=== PATIENT | female | born 1940 | race Caucasian/White ===

== ENCOUNTER 2022-06-05 18:24 | Emergency (ER) | payer MEDICAID, OTHER ==
[~2022-06-05] VITALS: Ht 154.9 cm; Wt 46.7 kg
[2022-06-05 18:24] VITALS: BP 138/64
--- NOTE | 2022-06-05 18:45 | NUR ---
Patient unable to assist from [facility] onto wheelchair d/t pain and current R hip fx.
--- NOTE | 2022-06-05 19:10 | NUR ---
Dr. Araujo evalutaing patient on [facility].
--- NOTE | 2022-06-05 19:11 | NUR ---
81/F BIBA FROM [facility] C/O BRIGHT RED BLOOD IN CINTRON CATHETER SINCE 1699. PT A&OX4, STATES CINTRON CATHETER PLACED IN LAST NIGHT; PT STATES WITH BLOOD-TINGED URINE APPROX. 200ML NOTED SINCE 1699. PT DENIES PAIN, DYSURIA, N/V/D, CONSTIPATION, CHEST PAIN, FEVER, CHILLS. PT W/ R HIP FX. DNR. PMH: HTN, HLD, NEUROPATHY, R HIP FX 3 WKS AGO MEDS: ASA, NORCO, PREGABALIN, LIPITOR, BENICAR NKDA
--- NOTE | 2022-06-05 19:21 | NUR ---
Report and transfer of care endorsed to CHRISTOPHER Mckeon.
--- NOTE | 2022-06-05 19:21 | NUR ---
Patient taken to bed 5.
--- NOTE | 2022-06-05 20:06 | NUR ---
PT IS FROM [facility] PRESENTS TO ED FOR BLOOD IN URINE / CINTRON CATH X1DAY. PT DENIES PAIN N/V/D. PT IS A&OX4. DENIES FEVER CHILIS OR DYSURIA. RIGHT HIP FX X3 WEEKS. HOB ELEVATED. BED AT LOWEST POSITION. URINE COLLECTED AND SENT TO LAB NKDA HTN NEUROPATHY
[2022-06-05 20:18] LABS: BILIRUBIN,URINE 1+ (NEGATIVE); BLOOD, URINE 3+ (NEGATIVE); COLOR,URINE YELLOW (YELLOW); LEUKOCYTE ESTERASE ,URINE 1+ (NEGATIVE); NITRITE, URINE POSITIVE (NEGATIVE); PH,URINE 6.5 (5.0-9.0); UGLUCOSE NEGATIVE (NEGATIVE)
--- NOTE | 2022-06-05 20:19 | NUR ---
URINE COLLECTED VIA CINTRON AND SENT TO LAB
[2022-06-05 20:22] LABS: APPEARANCE,URINE HAZY (CLEAR)
[2022-06-05 20:35] LABS: RBC,URINE TOO NUMEROUS TO COUN /HPF (0-5); WBC,URINE 0-5 /HPF (0-5)
--- NOTE | 2022-06-05 21:28 | NUR ---
Dr. Araujo examining patient.
[2022-06-05] MEDS ORDERED: CEPH-588 PO (21:29)
--- NOTE | 2022-06-05 22:50 | NUR ---
Patient appears to be resting comfortably in bed. Vital Signs within normal limits. Respirations even and unlabored.
--- NOTE | 2022-06-06 01:06 | NUR ---
Patient appears to be resting comfortably in bed. Vital Signs within normal limits. Respirations even and unlabored.
--- NOTE | 2022-06-06 02:50 | NUR ---
Patient appears to be resting comfortably in bed. Vital Signs within normal limits. Respirations even and unlabored.
--- NOTE | 2022-06-06 03:01 | NUR ---
PT MOVED TO ER BED 3
--- NOTE | 2022-06-06 03:50 | NUR ---
provided water as request.
--- NOTE | 2022-06-06 04:28 | NUR ---
Patient appears to be resting comfortably in bed. Vital Signs within normal limits. Respirations even and unlabored.
--- NOTE | 2022-06-06 05:18 | NUR ---
Re-position patient.
--- NOTE | 2022-06-06 05:34 | NUR ---
empty urine bag ~ 1200 ML, red color.
[2022-06-06] MEDS ORDERED: GABAPENTIN 300 MG CAP PO ONE (06:50)
--- NOTE | 2022-06-06 08:14 | NUR ---
PT REPOSITIONED TO FLAT
--- NOTE | 2022-06-06 08:54 | NUR ---
MOVED TO ER BED 8
--- NOTE | 2022-06-06 10:17 | NUR ---
PT REPOSITIONED TO LEFT SIDE LYING
--- NOTE | 2022-06-06 11:12 | NUR ---
PT REPOSITIONED TO R SIDE
--- NOTE | 2022-06-06 11:23 | NUR ---
[facility] CONTACTED AND MADE AWARE OF PT D/C AND ETA. SPOKE W/ WILIAM MENA.
[2022-06-06 11:31] VITALS: BP 132/63
--- NOTE | 2022-06-06 11:57 | NUR ---
Patient discharged with v/s stable. Written and verbal after care instructions FOR INDWELLING CATHETER, UTI AND HEMATURIA given and explained. Patient alert, oriented and verbalized understanding of instructions. Ambulance Transport with to [facility]. All questions addressed prior to discharge. ID band removed. Patient advised to follow up with PMD. Rx of KELFEX given. Opportunity to ask questions provided and answered. REPORT GIVEN TO WILIAM MENA AT [facility].
--- NOTE | 2022-06-06 12:01 | NUR ---
PT TX VIA [facility]
--- NOTE | 2022-06-06 12:09 | NUR ---
The patient's care was reviewed and supervised by ED Agency Nurse 7, RN, RN.
== END 2022-06-06 11:57 | disposition home or self-care (01) ==
LOC: MED 18:24
DX: R31.9 Hematuria, unspecified (principal); N39.0 Urinary tract infection, site not specified; I10 Essential (primary) hypertension; E78.5 Hyperlipidemia, unspecified; Z79.899 Other long term (current) drug therapy; Z98.890 Other specified postprocedural states
CPT/HCPCS: 81001; 87086; 99285

== ENCOUNTER 2022-11-29 15:15 | Emergency (ER) | payer OTHER, MEDICAID ==
[~2022-11-29] VITALS: Ht 160 cm; Wt 53.1 kg
[~2022-11-29 15:15] MED LIST: CEPH-588 PO
[2022-11-29 15:19] VITALS: BP 94/48
[2022-11-29 16:09] LABS: WHITE BLOOD COUNT (AUTO) 9.4 K/uL (4.8-10.8)
[2022-11-29 16:11] LABS: BASOPHILS % (AUTO) 0.3 % (0.0-2.0); EOSINOPHILS % (AUTO) 1.6 % (0.0-4.0); HEMATOCRIT 27.7 % (36-48); HEMOGLOBIN 9.2 g/dL (12.0-16.0); LYMPHOCYTES % (AUTO) 27.3 % (20.5-51.1); MEAN CORPUSCULAR HEMOGLOBIN 28 pg (27-31); MEAN CORPUSCULAR HGB CONC 33 g/dL (33-37); MEAN CORPUSCULAR VOLUME 85.3 fL (80-94); MONOCYTES % (AUTO) 8.6 % (1.7-9.3); NEUTROPHILS % (AUTO) 62.2 % (42.2-75.2); PLATELET COUNT (AUTO) 194 K/uL (140-450); RED BLOOD CELL COUNT(AUTO) 3.25 MIL/uL (4.20-5.40); RED CELL DISTRIBUTION WIDTH 16.9 % (11.6-13.7)
[2022-11-29 16:12] LABS: EOSINOPHILS # (AUTO) 0.1 K/uL (0-0.4); LYMPHOCYTES # (AUTO) 2.6 K/uL (2.5-16.5); MONOCYTES # (AUTO) 0.8 K/uL (0.8-1.0); NEUTROPHILS # (AUTO) 5.8 K/uL (1.8-7.7)
[2022-11-29 16:36] LABS: ANION GAP 11.8 (8-16); CHLORIDE 109 mmol/L (98-107); GLUCOSE 110 mg/dL (74-106); POTASSIUM 3.8 mmol/L (3.5-5.1); SODIUM SERUM 139 mmol/L (136-145)
[2022-11-29 16:37] LABS: ASPARTATE AMINOTRANSFERASE 18 U/L (15-37); CREATININE 0.5 mg/dL (0.6-1.3); TOTAL BILIRUBIN 0.3 mg/dL (0.0-1.0); UREA NITROGEN, BLOOD 32 mg/dL (7-18)
[2022-11-29 16:38] LABS: ALBUMIN 2.4 g/dL (3.4-5.0)
--- NOTE | 2022-11-29 17:14 | NUR ---
pt resting comfortably. on monitor.
[2022-11-29 17:20] LABS: APPEARANCE,URINE CLEAR (CLEAR); COLOR,URINE YELLOW (YELLOW)
[2022-11-29 17:21] LABS: BLOOD, URINE NEGATIVE (NEGATIVE); UGLUCOSE NEGATIVE (NEGATIVE)
[2022-11-29 17:22] LABS: BILIRUBIN,URINE NEGATIVE (NEGATIVE); LEUKOCYTE ESTERASE ,URINE NEGATIVE (NEGATIVE); NITRITE, URINE NEGATIVE (NEGATIVE)
--- NOTE | 2022-11-29 19:20 | NUR ---
Pt report given to Lorie WHITE. Transfer of care at this time.
--- NOTE | 2022-11-29 19:31 | NUR ---
Pt report given to Lorie WHITE. Transfer of care at this time.
--- NOTE | 2022-11-29 19:55 | NUR ---
Report given to michael, [place] nurse [place] [facility] [place].
--- NOTE | 2022-11-29 19:59 | NUR ---
[facility] AT [facility]
[2022-11-29 20:03] VITALS: BP 94/48
--- NOTE | 2022-11-29 20:03 | NUR ---
Patient discharged with v/s stable. Written and verbal after care instructions given and explained. Patient verbalized understanding. Ambulance Transport with to group home [facility]. All questions addressed prior to discharge. Advised to follow up with PMD.
== END 2022-11-29 20:03 | disposition home or self-care (01) ==
LOC: MED 15:15
DX: R63.4 Abnormal weight loss (principal); R79.9 Abnormal finding of blood chemistry, unspecified; I10 Essential (primary) hypertension; E78.5 Hyperlipidemia, unspecified; Z98.890 Other specified postprocedural states; Z79.899 Other long term (current) drug therapy
CPT/HCPCS: 36415; 80053; 81003; 85025; 99283

== ENCOUNTER 2023-03-13 11:33 | Inpatient (IN) | payer MEDICAID, OTHER ==
[2023-03-13] VITALS (10 sets, daily range): BP systolic 90–106; BP diastolic 41–42; PULSE 66–97; RESP 15–18; TEMP 97.3–98.2; O2SAT 95–99
[~2023-03-13] VITALS: Ht 157.5 cm; Wt 48.5 kg
[2023-03-13] MEDS ORDERED: NACL 0.9% 1,000 ML IV ONE (11:50)
[2023-03-13 12:50] LABS: BASOPHILS % (AUTO) 0.1 % (0.0-2.0); EOSINOPHILS % (AUTO) 0.2 % (0.0-4.0); HEMATOCRIT 26.6 % (36-48); HEMOGLOBIN 8.4 g/dL (12.0-16.0); LYMPHOCYTES # (AUTO) 2.4 K/uL (2.5-16.5); LYMPHOCYTES % (AUTO) 13.9 % (20.5-51.1); MEAN CORPUSCULAR HEMOGLOBIN 26 pg (27-31); MEAN CORPUSCULAR HGB CONC 32 g/dL (33-37); MEAN CORPUSCULAR VOLUME 80.7 fL (80-94); MONOCYTES # (AUTO) 0.7 K/uL (0.8-1.0); MONOCYTES % (AUTO) 4.2 % (1.7-9.3); NEUTROPHILS # (AUTO) 14.4 K/uL (1.8-7.7); NEUTROPHILS % (AUTO) 81.6 % (42.2-75.2); PLATELET COUNT (AUTO) 316 K/uL (140-450); RED CELL DISTRIBUTION WIDTH 17.5 % (11.6-13.7); WHITE BLOOD COUNT (AUTO) 17.7 K/uL (4.8-10.8)
[2023-03-13 12:51] LABS: ALANINE AMINOTRANSFERASE 49 U/L (12-78); ALBUMIN 2.1 g/dL (3.4-5.0); ALKALINE PHOSPHATASE 182 U/L (50-136); ASPARTATE AMINOTRANSFERASE 24 U/L (15-37); CALCIUM 8.6 mg/dL (8.5-10.1); CARBON DIOXIDE 20.9 mmol/L (21-32); CHLORIDE 102 mmol/L (98-107); CREATININE 1.3 mg/dL (0.6-1.3); GLUCOSE 132 mg/dL (74-106); POTASSIUM 3.9 mmol/L (3.5-5.1); SODIUM SERUM 134 mmol/L (136-145); TOTAL BILIRUBIN 0.4 mg/dL (0.0-1.0); TOTAL PROTEIN, SERUM 6.6 g/dL (6.4-8.2); UREA NITROGEN, BLOOD 50 mg/dL (7-18)
[2023-03-13 12:57] LABS: INR 1.04 (0.8-1.2); PARTIAL THROMBOPLASTIN TIME 25.1 secs (22-35.6); PROTHROMBIN TIME 10.9 secs (10.8-13.4)
[2023-03-13 13:01] LABS: CREATINE KINASE, TOTAL 34 U/L (26-192)
[2023-03-13 13:27] LABS: BLOOD GAS PCO2 26.5 mmHg (35-45); BLOOD GAS PH 7.483 (7.35-7.45); BLOOD GAS PO2 57.1 mmHg (75-100)
[2023-03-13 13:28] LABS: BLOOD GAS HCO3 19.4 mmol/L (22-26)
[2023-03-13 13:30] LABS: BLOOD GAS BASE EXCESS -3.3 mmol/L (-2.0-2.0)
[2023-03-13 13:31] LABS: BLOOD GAS O2 SAT% 89.8 % (92.0-98.5)
[2023-03-13 13:38] LABS: LACTIC ACID 3.2 mmol/L (0.4-2.0)
[2023-03-13] MEDS ORDERED: PIPERACILLIN/TAZOBACTAM 3.375 GM in DEXTROSE 5% 50 ML IV ONE (13:50)
[2023-03-13 13:52] LABS: FLU A ANTIGEN negative (NEGATIVE); FLU B ANTIGEN negative (NEGATIVE)
[2023-03-13 13:55] LABS: BILIRUBIN,URINE 1+ (NEGATIVE); BLOOD, URINE TRACE-I (NEGATIVE); COLOR,URINE YELLOW (YELLOW); PH,URINE >=9.0 (5.0-9.0); PROTEIN,URINE 2+ (NEGATIVE); UGLUCOSE NEGATIVE (NEGATIVE)
[2023-03-13] MEDS ORDERED: PIPERACILLIN/TAZOBACTAM 3.375 GM VIAL IV ONE (14:03)
[2023-03-13 14:04] LABS: APPEARANCE,URINE HAZY (CLEAR); BACTERIA,URINE 1+ /HPF (None Seen); NITRITE, URINE POSITIVE (NEGATIVE); RBC,URINE 0-5 /HPF (0-5); WBC,URINE 0-5 /HPF (0-5)
[2023-03-13 14:05] LABS: SQUAMOUS EPITHELIAL CELL,UR 0-3 (FEW) /LPF (0-3 (FEW))
[2023-03-13 14:06] LABS: ICTOTEST NEGATIVE (NEGATIVE)
[2023-03-13 14:08] LABS: TRIPLE PHOSPHATE CRYSTAL,UR 30-50 /HPF (None Seen)
[2023-03-13 14:10] LABS: LEUKOCYTE ESTERASE ,URINE 1+ (NEGATIVE)
[2023-03-13] MEDS ORDERED: LORazepam 2 MG/ML VIAL IVP PRN (15:10)
[2023-03-13] MEDS ORDERED: MORPHINE SULFATE 2 MG/ML SYR IVP PRN (15:10)
[2023-03-13] MEDS ORDERED: ONDANSETRON 4 MG/2 ML VIAL IVP PRN (15:10)
[2023-03-13] MEDS ORDERED: DEXTROSE 50% 50 ML SYR IVP PRN (15:45)
[2023-03-13] MEDS ORDERED: VANCOMYCIN 750 MG in DEXTROSE 5% 250 ML IV SCH (16:00)
[2023-03-13] MEDS ORDERED: VANCOMYCIN PER PHARMACY MC PRN (16:00)
[2023-03-13] MEDS ORDERED: HYDROcodone/APAP 5/325 MG 1 TAB TAB PO PRN (16:05)
[2023-03-13] MEDS ORDERED: ACET-2619 PO (16:07)
[2023-03-13] MEDS ORDERED: ACET-3114 PO (16:08)
[2023-03-13] MEDS ORDERED: LACT1CAP50 PO (16:09)
[2023-03-13] MEDS ORDERED: ASPI-1749 PO (16:10)
[2023-03-13] MEDS ORDERED: BANA1POW PO (16:11)
[2023-03-13] MEDS ORDERED: OLME40TA PO (16:12)
[2023-03-13] MEDS ORDERED: COLL30OI TP (16:13)
[2023-03-13] MEDS ORDERED: BISA-218 RC (16:13)
[2023-03-13] MEDS ORDERED: MEGE40SU4 PO (16:20)
[2023-03-13] MEDS ORDERED: MULT-2253 PO (16:20)
[2023-03-13] MEDS ORDERED: MAGN400S60 PO (16:20)
[2023-03-13] MEDS ORDERED: MELA3TER PO (16:20)
[2023-03-13] MEDS ORDERED: ATOR40TA PO (16:20)
[2023-03-13] MEDS ORDERED: FLEPED RC (16:20)
[2023-03-13] MEDS ORDERED: INSU100S5 IJ (16:20)
[2023-03-13] MEDS ORDERED: PREG100C PO (16:21)
[2023-03-13] MEDS: BLOOD GLUCOSE MONITORING 1 DEV DEV FS SCH ×2 (16:30→21:00)
[2023-03-13] MEDS: DEXT 5% /NACL 0.9% 1,000 ML IV SCH (17:42)
[2023-03-13] MEDS: VANCOMYCIN 750 MG in DEXTROSE 5% 250 ML IV SCH (17:49)
[2023-03-13] MEDS: IPRATROPIUM 0.02% 0.5 MG/2.5 ML NEBU INH SCH (19:30)
[2023-03-13] MEDS: ALBUTEROL 0.083% 2.5 MG/3 ML NEBU INH SCH (19:30)
[2023-03-13] MEDS ORDERED: traZODone 50 MG TAB PO SCH (21:00)
[2023-03-13] MEDS: INSULIN LISPRO SLIDING SCALE 100 UNITS/ML VIAL SUBQ PRN (22:04)
[2023-03-13] MEDS: PREGABALIN 25 MG CAP PO SCH (22:05)
[2023-03-13] MEDS: ATORVASTATIN 20 MG TAB PO SCH (22:05)
[2023-03-13] MEDS: CEFEPIME 1,000 MG in DEXTROSE 5% 50 ML IV SCH (22:06)
[2023-03-14] VITALS (10 sets, daily range): BP systolic 100–123; BP diastolic 43–65; PULSE 64–102; RESP 16–18; TEMP 97.6–98.8; O2SAT 95–100
[2023-03-14] MEDS: IPRATROPIUM 0.02% 0.5 MG/2.5 ML NEBU INH SCH ×3 (01:00→14:41)
[2023-03-14] MEDS: ALBUTEROL 0.083% 2.5 MG/3 ML NEBU INH SCH ×3 (01:00→14:41)
[2023-03-14] MEDS: DEXT 5% /NACL 0.9% 1,000 ML IV SCH ×2 (04:15→17:01)
[2023-03-14 06:02] LABS: BASOPHILS % (AUTO) 0.2 % (0.0-2.0); EOSINOPHILS # (AUTO) 0.1 K/uL (0-0.4); EOSINOPHILS % (AUTO) 0.6 % (0.0-4.0); HEMATOCRIT 20.1 % (36-48); LYMPHOCYTES # (AUTO) 2.2 K/uL (2.5-16.5); LYMPHOCYTES % (AUTO) 17.6 % (20.5-51.1); MEAN CORPUSCULAR HEMOGLOBIN 26 pg (27-31); MEAN CORPUSCULAR HGB CONC 32 g/dL (33-37); MEAN CORPUSCULAR VOLUME 79.7 fL (80-94); MONOCYTES # (AUTO) 0.7 K/uL (0.8-1.0); MONOCYTES % (AUTO) 6.1 % (1.7-9.3); NEUTROPHILS # (AUTO) 9.3 K/uL (1.8-7.7); NEUTROPHILS % (AUTO) 75.5 % (42.2-75.2); PLATELET COUNT (AUTO) 248 K/uL (140-450); RED BLOOD CELL COUNT(AUTO) 2.52 MIL/uL (4.20-5.40); RED CELL DISTRIBUTION WIDTH 17.6 % (11.6-13.7); WHITE BLOOD COUNT (AUTO) 12.3 K/uL (4.8-10.8)
[2023-03-14 06:18] LABS: HEMOGLOBIN 6.4 g/dL (12.0-16.0)
[2023-03-14 06:25] LABS: ANION GAP 12.4 (8-16); CALCIUM 8.2 mg/dL (8.5-10.1); CARBON DIOXIDE 19.8 mmol/L (21-32); CHLORIDE 106 mmol/L (98-107); CREATININE 0.7 mg/dL (0.6-1.3); GLUCOSE 141 mg/dL (74-106); POTASSIUM 3.2 mmol/L (3.5-5.1); SODIUM SERUM 135 mmol/L (136-145); UREA NITROGEN, BLOOD 46 mg/dL (7-18)
[2023-03-14] MEDS: BLOOD GLUCOSE MONITORING 1 DEV DEV FS SCH ×4 (06:48→21:14)
[2023-03-14] MEDS: PREGABALIN 25 MG CAP PO SCH ×2 (08:47→21:21)
[2023-03-14] MEDS: CEFEPIME 1,000 MG in DEXTROSE 5% 50 ML IV SCH ×2 (08:55→21:16)
[2023-03-14] MEDS ORDERED: COMMUNICATION ORDER MC SCH (09:00)
[2023-03-14] MEDS ORDERED: ENOXAPARIN 40 MG/0.4 ML SYR SUBQ SCH (09:00)
[2023-03-14] MEDS ORDERED: ASPIRIN 81 MG TAB.CHEW PO SCH (09:00)
[2023-03-14] MEDS ORDERED: Z-GUARD PASTE TP PRN (11:15)
[2023-03-14] MEDS ORDERED: FOAM DRESSING TP PRN (11:15)
[2023-03-14] MEDS: INSULIN LISPRO SLIDING SCALE 100 UNITS/ML VIAL SUBQ PRN ×3 (12:33→21:44)
[2023-03-14] MEDS: THERAHONEY GEL 42.5 GM TP SCH (13:05)
[2023-03-14] MEDS: FOAM DRESSING TP SCH (13:05)
[2023-03-14] MEDS: Z-GUARD PASTE TP SCH (13:05)
[2023-03-14] MEDS ORDERED: POTASSIUM IODIDE 30 GM/30 ML BTL PO ONE (13:35)
[2023-03-14] MEDS ORDERED: POTASSIUM CHLORIDE 10 MEQ TABER PO SCH (13:43)
[2023-03-14] MEDS: PANTOPRAZOLE 40 MG INJ VIAL IVP SCH ×2 (17:07→21:16)
[2023-03-14] MEDS: VANCOMYCIN 750 MG in DEXTROSE 5% 250 ML IV SCH (17:15)
[2023-03-14] MEDS: ACETAMINOPHEN 325 MG TAB PO PRN ×2 (18:07→23:14)
[2023-03-14 18:44] LABS: HEMATOCRIT 25.8 % (36-48); HEMOGLOBIN 8.4 g/dL (12.0-16.0)
[2023-03-14] MEDS ORDERED: ALBUTEROL SULFATE/IPRATROPIU 3 ML SOL IH ONE (20:11)
[2023-03-14] MEDS ORDERED: ALBUTEROL SULFATE/IPRATROPIU 3 ML SOL IH PRN (20:20)
[2023-03-14] MEDS: ATORVASTATIN 20 MG TAB PO SCH (21:17)
[2023-03-14] MEDS: traZODone 50 MG TAB PO SCH (21:17)
[2023-03-15] VITALS (13 sets, daily range): BP systolic 109–176; BP diastolic 61–77; PULSE 68–100; RESP 16–20; TEMP 97.6–98.7; O2SAT 94–99
[2023-03-15] MEDS: ALBUTEROL SULFATE/IPRATROPIU 3 ML SOL IH SCH ×4 (00:45→19:04)
[2023-03-15] MEDS: Z-GUARD PASTE TP SCH ×2 (01:25→12:32)
[2023-03-15 06:44] LABS: BASOPHILS % (AUTO) 0.2 % (0.0-2.0); EOSINOPHILS % (AUTO) 0.3 % (0.0-4.0); HEMATOCRIT 23.8 % (36-48); HEMOGLOBIN 7.9 g/dL (12.0-16.0); LYMPHOCYTES # (AUTO) 1.5 K/uL (2.5-16.5); LYMPHOCYTES % (AUTO) 17.6 % (20.5-51.1); MEAN CORPUSCULAR HEMOGLOBIN 27 pg (27-31); MEAN CORPUSCULAR HGB CONC 33 g/dL (33-37); MEAN CORPUSCULAR VOLUME 81.9 fL (80-94); MONOCYTES # (AUTO) 0.4 K/uL (0.8-1.0); MONOCYTES % (AUTO) 5.1 % (1.7-9.3); NEUTROPHILS # (AUTO) 6.5 K/uL (1.8-7.7); NEUTROPHILS % (AUTO) 76.8 % (42.2-75.2); PLATELET COUNT (AUTO) 217 K/uL (140-450); RED BLOOD CELL COUNT(AUTO) 2.91 MIL/uL (4.20-5.40); WHITE BLOOD COUNT (AUTO) 8.5 K/uL (4.8-10.8)
[2023-03-15 06:52] LABS: ANION GAP 11.2 (8-16); CALCIUM 8.2 mg/dL (8.5-10.1); CARBON DIOXIDE 19.3 mmol/L (21-32); CHLORIDE 109 mmol/L (98-107); CREATININE 0.5 mg/dL (0.6-1.3); GLUCOSE 164 mg/dL (74-106); POTASSIUM 3.5 mmol/L (3.5-5.1); SODIUM SERUM 136 mmol/L (136-145); UREA NITROGEN, BLOOD 15 mg/dL (7-18)
[2023-03-15] MEDS: BLOOD GLUCOSE MONITORING 1 DEV DEV FS SCH ×4 (07:15→21:33)
[2023-03-15] MEDS: DEXT 5% /NACL 0.9% 1,000 ML IV SCH (07:16)
[2023-03-15] MEDS: PREGABALIN 25 MG CAP PO SCH ×2 (08:11→21:36)
[2023-03-15] MEDS: CEFEPIME 1,000 MG in DEXTROSE 5% 50 ML IV SCH (09:12)
[2023-03-15] MEDS: PANTOPRAZOLE 40 MG INJ VIAL IVP SCH (09:12)
[2023-03-15] MEDS: INSULIN LISPRO SLIDING SCALE 100 UNITS/ML VIAL SUBQ PRN ×2 (11:46→22:04)
[2023-03-15] MEDS: THERAHONEY GEL 42.5 GM TP SCH (12:32)
[2023-03-15] MEDS: FOAM DRESSING TP SCH (12:32)
[2023-03-15] MEDS ORDERED: hydrALAZINE 25 MG TAB PO PRN (16:50)
[2023-03-15] MEDS: VANCOMYCIN 750 MG in DEXTROSE 5% 250 ML IV SCH (17:33)
[2023-03-15] MEDS ORDERED: ALBUTEROL SULFATE/IPRATROPIU 3 ML SOL IH SCH (19:00)
[2023-03-15] MEDS: MEROPENEM 1,000 MG in NACL 0.9% 50 ML IV SCH (21:34)
[2023-03-15] MEDS: traZODone 50 MG TAB PO SCH (21:35)
[2023-03-15] MEDS: DOCUSATE SODIUM 100 MG GELCAP PO SCH (21:35)
[2023-03-15] MEDS: SENNA 8.6 MG TAB PO SCH (21:36)
[2023-03-15] MEDS: ATORVASTATIN 20 MG TAB PO SCH (21:45)
[2023-03-16] VITALS (7 sets, daily range): BP systolic 100–138; BP diastolic 62–66; PULSE 57–80; RESP 16–18; TEMP 97.9–98.3; O2SAT 73–98
[2023-03-16] MEDS: ALBUTEROL SULFATE/IPRATROPIU 3 ML SOL IH SCH ×3 (00:46→13:33)
[2023-03-16] MEDS: Z-GUARD PASTE TP SCH ×2 (04:00→13:00)
[2023-03-16 06:28] LABS: BASOPHILS % (AUTO) 0.2 % (0.0-2.0); EOSINOPHILS # (AUTO) 0.1 K/uL (0-0.4); HEMATOCRIT 25.7 % (36-48); HEMOGLOBIN 8.4 g/dL (12.0-16.0); LYMPHOCYTES # (AUTO) 2.1 K/uL (2.5-16.5); LYMPHOCYTES % (AUTO) 22.3 % (20.5-51.1); MEAN CORPUSCULAR HEMOGLOBIN 26 pg (27-31); MEAN CORPUSCULAR HGB CONC 33 g/dL (33-37); MEAN CORPUSCULAR VOLUME 80.6 fL (80-94); MONOCYTES # (AUTO) 0.5 K/uL (0.8-1.0); MONOCYTES % (AUTO) 5.1 % (1.7-9.3); NEUTROPHILS # (AUTO) 6.7 K/uL (1.8-7.7); NEUTROPHILS % (AUTO) 71.4 % (42.2-75.2); PLATELET COUNT (AUTO) 235 K/uL (140-450); RED BLOOD CELL COUNT(AUTO) 3.19 MIL/uL (4.20-5.40); RED CELL DISTRIBUTION WIDTH 18.1 % (11.6-13.7); WHITE BLOOD COUNT (AUTO) 9.5 K/uL (4.8-10.8)
[2023-03-16 06:39] LABS: ANION GAP 11.7 (8-16); CALCIUM 8.3 mg/dL (8.5-10.1); CARBON DIOXIDE 19.7 mmol/L (21-32); CHLORIDE 107 mmol/L (98-107); CREATININE 0.5 mg/dL (0.6-1.3); GLUCOSE 105 mg/dL (74-106); POTASSIUM 3.4 mmol/L (3.5-5.1); SODIUM SERUM 135 mmol/L (136-145); UREA NITROGEN, BLOOD 10 mg/dL (7-18)
[2023-03-16] MEDS: BLOOD GLUCOSE MONITORING 1 DEV DEV FS SCH ×2 (07:35→11:59)
[2023-03-16] MEDS ORDERED: PANTOPRAZOLE 40 MG INJ VIAL IVP SCH (09:00)
[2023-03-16] MEDS: PREGABALIN 25 MG CAP PO SCH (09:45)
[2023-03-16] MEDS: DOCUSATE SODIUM 100 MG GELCAP PO SCH (09:45)
[2023-03-16] MEDS: SENNA 8.6 MG TAB PO SCH (09:46)
[2023-03-16] MEDS: MEROPENEM 1,000 MG in NACL 0.9% 50 ML IV SCH (09:47)
[2023-03-16] MEDS ORDERED: POTASSIUM CHLORIDE 10 MEQ TABER PO SCH (12:38)
[2023-03-16] MEDS ORDERED: POTASSIUM CHLORIDE 20% 40 MEQ/15 ML UDC PO SCH (12:47)
[2023-03-16] MEDS: FOAM DRESSING TP SCH (13:59)
[2023-03-16] MEDS: THERAHONEY GEL 42.5 GM TP SCH (14:00)
== END 2023-03-16 18:15 | DRG 871 ==
LOC: MED 11:33 → MTU 15:13
PROVIDERS: ADMIT Internal Medicine; ATTEND Internal Medicine
PROC: 30233N1 Transfusion of Nonautologous Red Blood Cells into Peripheral Vein, Percutaneous Approach (ICD-10-PCS; principal; 2023-03-14)
DX: A41.9 Sepsis, unspecified organism (principal); J69.0 Pneumonitis due to inhalation of food and vomit; L89.154 Pressure ulcer of sacral region, stage 4; J96.01 Acute respiratory failure with hypoxia; N39.0 Urinary tract infection, site not specified; Z20.822 Contact with and (suspected) exposure to COVID-19; D63.8 Anemia in other chronic diseases classified elsewhere; E78.5 Hyperlipidemia, unspecified; E11.40 Type 2 diabetes mellitus with diabetic neuropathy, unspecified; I10 Essential (primary) hypertension; Z90.49 Acquired absence of other specified parts of digestive tract; Z85.038 Personal history of other malignant neoplasm of large intestine
CPT/HCPCS: 36415; 36430; 36600; 71045; 80048; 80053; 80202; 81001; 82272; 82550; 82803; 82948; 83605; 83735; 83880; 84484; 85018; 85025; 85610; 85730; 86886; 86900; 86901; 86920; 87040; 87070; 87075; 87081; 87086; 87205; 92526; 93005; 94640; 96365; 99291; A4649; C9113; J0692; J1644; J1815; J2060; J2185; J2543; J3370; J7060; J7613; J7644; P9016

== ENCOUNTER 2023-03-30 18:52 | Inpatient (IN) | payer MEDICAID, OTHER ==
[~2023-03-30] VITALS: Ht 162.6 cm; Wt 72.6 kg
[~2023-03-30 18:52] MED LIST changes: +ACET-2619 PO; +ACET-3114 PO; +ASPI-1749 PO; +ATOR40TA PO; +BANA1POW PO; +BISA-218 RC; -CEPH-588 PO; +COLL30OI TP; +FLEPED RC; +INSU100S5 IJ; +LACT1CAP50 PO; +MAGN400S60 PO; +MEGE40SU4 PO; +MELA3TER PO; +MULT-2253 PO; +OLME40TA PO; +PREG100C PO
[2023-03-30] MEDS ORDERED: cefTRIAXone 1,000 MG in DEXT 5% MINI-BAG PLUS 50 ML IV ONE (19:00)
[2023-03-30 19:02] VITALS: BP 96/48; PULSE 101; RESP 18; TEMP 98; O2SAT 98
[2023-03-30] MEDS ORDERED: NACL 0.9% 2,000 ML IV SCH (19:25)
[2023-03-30 19:33] LABS: BASOPHILS % (AUTO) 0.4 % (0.0-2.0); EOSINOPHILS % (AUTO) 0.5 % (0.0-4.0); HEMOGLOBIN 9.5 g/dL (12.0-16.0); LYMPHOCYTES # (AUTO) 2.7 K/uL (2.5-16.5); LYMPHOCYTES % (AUTO) 27.1 % (20.5-51.1); MEAN CORPUSCULAR HEMOGLOBIN 26 pg (27-31); MEAN CORPUSCULAR HGB CONC 32 g/dL (33-37); MEAN CORPUSCULAR VOLUME 80.7 fL (80-94); MONOCYTES # (AUTO) 0.6 K/uL (0.8-1.0); MONOCYTES % (AUTO) 5.7 % (1.7-9.3); NEUTROPHILS # (AUTO) 6.7 K/uL (1.8-7.7); NEUTROPHILS % (AUTO) 66.3 % (42.2-75.2); PLATELET COUNT (AUTO) 229 K/uL (140-450); RED BLOOD CELL COUNT(AUTO) 3.72 MIL/uL (4.20-5.40); RED CELL DISTRIBUTION WIDTH 19.8 % (11.6-13.7); WHITE BLOOD COUNT (AUTO) 10.1 K/uL (4.8-10.8)
[2023-03-30] MEDS ORDERED: cefTRIAXone 1,000 MG VIAL ONE (19:54)
[2023-03-30 20:11] LABS: APPEARANCE,URINE CLOUDY (CLEAR); BILIRUBIN,URINE NEGATIVE (NEGATIVE); BLOOD, URINE 1+ (NEGATIVE); COLOR,URINE YELLOW (YELLOW); LEUKOCYTE ESTERASE ,URINE NEGATIVE (NEGATIVE); NITRITE, URINE NEGATIVE (NEGATIVE); PROTEIN,URINE 2+ (NEGATIVE); UGLUCOSE NEGATIVE (NEGATIVE)
[2023-03-30 20:18] LABS: WBC,URINE 0-5 /HPF (0-5)
[2023-03-30 20:19] LABS: BACTERIA,URINE 2+ /HPF (None Seen); SQUAMOUS EPITHELIAL CELL,UR 0-3 (FEW) /LPF (0-3 (FEW))
[2023-03-30 20:29] LABS: FLU A ANTIGEN negative (NEGATIVE); FLU B ANTIGEN NEGATIVE (NEGATIVE)
[2023-03-30 20:40] LABS: ALANINE AMINOTRANSFERASE 78 U/L (12-78); ALBUMIN 2.1 g/dL (3.4-5.0); ALKALINE PHOSPHATASE 307 U/L (50-136); ANION GAP 15.1 (8-16); ASPARTATE AMINOTRANSFERASE 75 U/L (15-37); CALCIUM 8.9 mg/dL (8.5-10.1); CARBON DIOXIDE 21.2 mmol/L (21-32); CHLORIDE 104 mmol/L (98-107); CREATININE 0.8 mg/dL (0.6-1.3); GLUCOSE 155 mg/dL (74-106); POTASSIUM 4.3 mmol/L (3.5-5.1); SODIUM SERUM 136 mmol/L (136-145); TOTAL BILIRUBIN 0.9 mg/dL (0.0-1.0); TOTAL PROTEIN, SERUM 6.9 g/dL (6.4-8.2); UREA NITROGEN, BLOOD 39 mg/dL (7-18)
[2023-03-30] MEDS ORDERED: DOCUSATE SODIUM 100 MG GELCAP PO PRN (22:10)
[2023-03-30] MEDS ORDERED: POTASSIUM CHLORIDE 10 MEQ TABER PO PRN (22:10)
[2023-03-30] MEDS ORDERED: ONDANSETRON 4 MG/2 ML VIAL IM/IVP PRN (22:10)
[2023-03-30] MEDS ORDERED: ACETAMINOPHEN 325 MG TAB PO PRN (22:10)
[2023-03-30] MEDS ORDERED: guaiFENesin DM 200/20 MG-10 ML 10 ML UDC PO PRN (22:10)
[2023-03-30] MEDS ORDERED: HYDROcodone/APAP 7.5/325 MG 1 TAB PO PRN (22:10)
[2023-03-30] MEDS ORDERED: ZOLPIDEM 5 MG TAB PO PRN (22:10)
[2023-03-30 22:12] VITALS: PULSE 82; RESP 17; RESP 24; O2SAT 95; O2SAT 96
[2023-03-30] MEDS ORDERED: ALBUTEROL SULFATE/IPRATROPIU 3 ML SOL IH PRN (22:20)
[2023-03-30] MEDS ORDERED: INSULIN LISPRO SLIDING SCALE 100 UNITS/ML VIAL SUBQ PRN (22:20)
[2023-03-30] MEDS ORDERED: DEXTROSE 50% 50 ML SYR IVP PRN (22:20)
[2023-03-30 22:42] LABS: INR 1.11 (0.8-1.2); PARTIAL THROMBOPLASTIN TIME 23.9 secs (22-35.6); PROTHROMBIN TIME 11.6 secs (10.8-13.4)
[2023-03-30 22:49] LABS: FREE T4 (FREE THYROXINE) 1.36 ng/dL (0.76-1.46); MAGNESIUM 2.1 mg/dL (1.8-2.4); PHOSPHORUS 3.9 mg/dL (2.5-4.9); THYROID STIMULATING HORMONE 0.69 uIU/mL (0.34-3.74)
[2023-03-30] MEDS: NACL 0.9% 1,000 ML IV SCH (23:10)
[2023-03-30 23:30] VITALS: PULSE 68; RESP 24; O2SAT 95
[2023-03-31] VITALS (10 sets, daily range): BP systolic 88–114; BP diastolic 36–59; PULSE 87–116; RESP 17–21; TEMP 97.3–99.4; O2SAT 90–96
[2023-03-31 00:31] LABS: CHOL/HDL RATIO 2.3 (1-4.5)
[2023-03-31] MEDS: BLOOD GLUCOSE MONITORING 1 DEV DEV FS SCH ×4 (06:42→20:35)
[2023-03-31 07:21] LABS: BASOPHILS % (AUTO) 0.2 % (0.0-2.0); EOSINOPHILS # (AUTO) 0.1 K/uL (0-0.4); HEMATOCRIT 25.1 % (36-48); HEMOGLOBIN 8.1 g/dL (12.0-16.0); LYMPHOCYTES # (AUTO) 1.3 K/uL (2.5-16.5); LYMPHOCYTES % (AUTO) 18.5 % (20.5-51.1); MEAN CORPUSCULAR HEMOGLOBIN 26 pg (27-31); MEAN CORPUSCULAR HGB CONC 32 g/dL (33-37); MEAN CORPUSCULAR VOLUME 80.3 fL (80-94); MONOCYTES # (AUTO) 0.4 K/uL (0.8-1.0); MONOCYTES % (AUTO) 6.2 % (1.7-9.3); NEUTROPHILS # (AUTO) 5.3 K/uL (1.8-7.7); NEUTROPHILS % (AUTO) 74.1 % (42.2-75.2); PLATELET COUNT (AUTO) 181 K/uL (140-450); RED BLOOD CELL COUNT(AUTO) 3.12 MIL/uL (4.20-5.40); RED CELL DISTRIBUTION WIDTH 19.5 % (11.6-13.7); WHITE BLOOD COUNT (AUTO) 7.2 K/uL (4.8-10.8)
[2023-03-31 07:35] LABS: ANION GAP 13.3 (8-16); CALCIUM 8.2 mg/dL (8.5-10.1); CARBON DIOXIDE 19.2 mmol/L (21-32); CHLORIDE 108 mmol/L (98-107); CREATININE 0.5 mg/dL (0.6-1.3); GLUCOSE 88 mg/dL (74-106); POTASSIUM 3.5 mmol/L (3.5-5.1); SODIUM SERUM 137 mmol/L (136-145); UREA NITROGEN, BLOOD 34 mg/dL (7-18)
[2023-03-31] MEDS: ALBUTEROL SULFATE/IPRATROPIU 3 ML SOL IH SCH ×3 (07:53→19:42)
[2023-03-31] MEDS: PANTOPRAZOLE 40 MG TABEC PO SCH (08:48)
[2023-03-31] MEDS: NACL 0.9% 1,000 ML IV SCH ×2 (11:30→15:34)
[2023-04-01] VITALS (9 sets, daily range): BP systolic 118–127; BP diastolic 56–77; PULSE 96–112; RESP 16–21; TEMP 97.3–98.6; O2SAT 95–98
[2023-04-01] MEDS: NACL 0.9% 1,000 ML IV SCH (05:04)
[2023-04-01] MEDS: BLOOD GLUCOSE MONITORING 1 DEV DEV FS SCH ×4 (06:33→21:00)
[2023-04-01 06:57] LABS: CALCIUM 8.3 mg/dL (8.5-10.1); CARBON DIOXIDE 20.3 mmol/L (21-32); CHLORIDE 108 mmol/L (98-107); CREATININE 0.5 mg/dL (0.6-1.3); GLUCOSE 112 mg/dL (74-106); UREA NITROGEN, BLOOD 22 mg/dL (7-18)
[2023-04-01 07:07] LABS: ANION GAP 12.3 (8-16); SODIUM SERUM 138 mmol/L (136-145)
[2023-04-01 07:15] LABS: POTASSIUM 2.6 mmol/L (3.5-5.1)
[2023-04-01 07:23] LABS: BASOPHILS % (AUTO) 0.1 % (0.0-2.0); EOSINOPHILS # (AUTO) 0.1 K/uL (0-0.4); EOSINOPHILS % (AUTO) 0.6 % (0.0-4.0); HEMATOCRIT 24.5 % (36-48); LYMPHOCYTES % (AUTO) 8.5 % (20.5-51.1); MEAN CORPUSCULAR HEMOGLOBIN 26 pg (27-31); MEAN CORPUSCULAR HGB CONC 33 g/dL (33-37); MEAN CORPUSCULAR VOLUME 79.4 fL (80-94); MONOCYTES # (AUTO) 0.6 K/uL (0.8-1.0); MONOCYTES % (AUTO) 5.1 % (1.7-9.3); NEUTROPHILS # (AUTO) 10.3 K/uL (1.8-7.7); NEUTROPHILS % (AUTO) 85.7 % (42.2-75.2); PLATELET COUNT (AUTO) 200 K/uL (140-450); RED BLOOD CELL COUNT(AUTO) 3.09 MIL/uL (4.20-5.40); RED CELL DISTRIBUTION WIDTH 19.3 % (11.6-13.7)
[2023-04-01] MEDS: PANTOPRAZOLE 40 MG TABEC PO SCH (08:15)
[2023-04-01] MEDS ORDERED: POTASSIUM CHLORIDE 40 MEQ, LIDOCAINE 1% 25 MG in NACL 0.9% 250 ML IV ONE (08:30)
[2023-04-01] MEDS: ALBUTEROL SULFATE/IPRATROPIU 3 ML SOL IH SCH ×3 (08:57→19:48)
[2023-04-01 09:06] LABS: T4 (THYROXINE) 6.6 ug/dL (4.5-12.0)
[2023-04-01 10:12] LABS: HEMOGLOBIN A1C 6.4 % (4.8-5.6)
[2023-04-01] MEDS ORDERED: LORazepam 2 MG/ML VIAL IVP PRN (19:00)
[2023-04-02] VITALS (9 sets, daily range): BP systolic 110–165; BP diastolic 44–73; PULSE 68–118; RESP 16–22; TEMP 96.8–98.4; O2SAT 93–97
[2023-04-02] MEDS: NACL 0.9% 1,000 ML IV SCH ×2 (01:07→17:20)
[2023-04-02] MEDS: BLOOD GLUCOSE MONITORING 1 DEV DEV FS SCH ×4 (06:34→21:05)
[2023-04-02 07:22] LABS: BASOPHILS % (AUTO) 0.2 % (0.0-2.0); EOSINOPHILS # (AUTO) 0.1 K/uL (0-0.4); EOSINOPHILS % (AUTO) 0.7 % (0.0-4.0); HEMATOCRIT 24.2 % (36-48); HEMOGLOBIN 7.8 g/dL (12.0-16.0); LYMPHOCYTES # (AUTO) 1.2 K/uL (2.5-16.5); LYMPHOCYTES % (AUTO) 9.8 % (20.5-51.1); MEAN CORPUSCULAR HEMOGLOBIN 26 pg (27-31); MEAN CORPUSCULAR HGB CONC 32 g/dL (33-37); MEAN CORPUSCULAR VOLUME 79.2 fL (80-94); MONOCYTES # (AUTO) 0.9 K/uL (0.8-1.0); MONOCYTES % (AUTO) 7.3 % (1.7-9.3); NEUTROPHILS # (AUTO) 9.7 K/uL (1.8-7.7); PLATELET COUNT (AUTO) 201 K/uL (140-450); RED BLOOD CELL COUNT(AUTO) 3.06 MIL/uL (4.20-5.40); RED CELL DISTRIBUTION WIDTH 19.4 % (11.6-13.7); WHITE BLOOD COUNT (AUTO) 11.8 K/uL (4.8-10.8)
[2023-04-02 07:37] LABS: ANION GAP 12.4 (8-16); CALCIUM 8.2 mg/dL (8.5-10.1); CHLORIDE 112 mmol/L (98-107); CREATININE 0.4 mg/dL (0.6-1.3); GLUCOSE 94 mg/dL (74-106); SODIUM SERUM 142 mmol/L (136-145); UREA NITROGEN, BLOOD 17 mg/dL (7-18)
[2023-04-02] MEDS: ALBUTEROL SULFATE/IPRATROPIU 3 ML SOL IH SCH ×3 (07:39→18:50)
[2023-04-02] MEDS: PANTOPRAZOLE 40 MG TABEC PO SCH (08:06)
[2023-04-02 08:23] LABS: POTASSIUM 2.4 mmol/L (3.5-5.1)
[2023-04-02] MEDS: HYDROcodone/APAP 5/325 MG 1 TAB TAB PO PRN (09:42)
[2023-04-02] MEDS ORDERED: POTASSIUM CHLORIDE 40 MEQ, LIDOCAINE 1% 25 MG in NACL 0.9% 250 ML IV SCH (10:30)
[2023-04-02] MEDS ORDERED: ALGINATE ROPE MC PRN (11:55)
[2023-04-02] MEDS ORDERED: HYDROCOLLOID DRESSING TP PRN (11:55)
[2023-04-02] MEDS ORDERED: FOAM DRESSING TP PRN (11:55)
[2023-04-02] MEDS ORDERED: HYDROCOLLOID DRESSING TP SCH (13:00)
[2023-04-02] MEDS: ALGINATE ROPE MC SCH (13:05)
[2023-04-02] MEDS: FOAM DRESSING TP SCH (13:06)
[2023-04-02] MEDS: Z-GUARD PASTE TP SCH (13:07)
[2023-04-03] VITALS: BP 153/69; PULSE 104; PULSE 92; RESP 18; TEMP 98.7; O2SAT 95
[2023-04-03] MEDS: Z-GUARD PASTE TP SCH ×2 (00:14→13:46)
[2023-04-03] MEDS: HYDROcodone/APAP 5/325 MG 1 TAB TAB PO PRN ×2 (00:16→08:12)
[2023-04-03 04:00] VITALS: BP 150/67; PULSE 72; PULSE 78; RESP 17; TEMP 97.7; O2SAT 95
[2023-04-03] MEDS: NACL 0.9% 1,000 ML IV SCH ×2 (06:10→07:49)
[2023-04-03 06:19] LABS: BASOPHILS % (AUTO) 0.1 % (0.0-2.0); EOSINOPHILS # (AUTO) 0.1 K/uL (0-0.4); EOSINOPHILS % (AUTO) 1.5 % (0.0-4.0); HEMATOCRIT 22.6 % (36-48); HEMOGLOBIN 7.4 g/dL (12.0-16.0); LYMPHOCYTES # (AUTO) 1.1 K/uL (2.5-16.5); LYMPHOCYTES % (AUTO) 11.7 % (20.5-51.1); MEAN CORPUSCULAR HEMOGLOBIN 26 pg (27-31); MEAN CORPUSCULAR HGB CONC 33 g/dL (33-37); MEAN CORPUSCULAR VOLUME 78.3 fL (80-94); MONOCYTES # (AUTO) 0.8 K/uL (0.8-1.0); NEUTROPHILS # (AUTO) 7.3 K/uL (1.8-7.7); NEUTROPHILS % (AUTO) 77.7 % (42.2-75.2); PLATELET COUNT (AUTO) 171 K/uL (140-450); RED BLOOD CELL COUNT(AUTO) 2.89 MIL/uL (4.20-5.40); RED CELL DISTRIBUTION WIDTH 19.6 % (11.6-13.7); WHITE BLOOD COUNT (AUTO) 9.4 K/uL (4.8-10.8)
[2023-04-03] MEDS: BLOOD GLUCOSE MONITORING 1 DEV DEV FS SCH ×2 (06:38→11:52)
[2023-04-03 06:49] LABS: ANION GAP 13.4 (8-16); CALCIUM 7.9 mg/dL (8.5-10.1); CHLORIDE 115 mmol/L (98-107); CREATININE 0.4 mg/dL (0.6-1.3); GLUCOSE 99 mg/dL (74-106); SODIUM SERUM 146 mmol/L (136-145); UREA NITROGEN, BLOOD 14 mg/dL (7-18)
[2023-04-03 06:59] LABS: POTASSIUM 2.4 mmol/L (3.5-5.1)
[2023-04-03 07:45] VITALS: PULSE 96; RESP 20; O2SAT 94
[2023-04-03] MEDS: ALBUTEROL SULFATE/IPRATROPIU 3 ML SOL IH SCH (07:45)
[2023-04-03 08:00] VITALS: BP 164/77; PULSE 111; PULSE 90; RESP 20; TEMP 98.3; O2SAT 92; O2SAT 93
[2023-04-03] MEDS: PANTOPRAZOLE 40 MG TABEC PO SCH (08:11)
[2023-04-03] MEDS ORDERED: POTASSIUM CHLORIDE 40 MEQ, LIDOCAINE 1% 25 MG in NACL 0.9% 250 ML IV PRN (08:15)
[2023-04-03] MEDS ORDERED: MAGNESIUM OXIDE 400 MG TAB PO SCH (08:47)
[2023-04-03] MEDS ORDERED: hydrALAZINE 20 MG/ML VIAL IVP SCH (10:40)
[2023-04-03] MEDS ORDERED: METOPROLOL SUCCINATE 50 MG TABER PO SCH (10:45)
[2023-04-03 12:00] VITALS: BP 154/72; PULSE 110; PULSE 112; RESP 18; TEMP 98.6; O2SAT 90
[2023-04-03] MEDS: ALGINATE ROPE MC SCH (13:46)
[2023-04-03] MEDS: FOAM DRESSING TP SCH (13:46)
[2023-04-03 14:05] VITALS: PULSE 100
[2023-04-03] MEDS ORDERED: MERO500V16 IV (14:45)
== END 2023-04-03 14:34 | DRG 871 ==
LOC: MED 18:52 → MTU 21:10
PROVIDERS: ADMIT Family Medicine; ATTEND Family Medicine
DX: A41.9 Sepsis, unspecified organism (principal); E43 Unspecified severe protein-calorie malnutrition; J69.0 Pneumonitis due to inhalation of food and vomit; J96.01 Acute respiratory failure with hypoxia; G93.41 Metabolic encephalopathy; N39.0 Urinary tract infection, site not specified; D63.8 Anemia in other chronic diseases classified elsewhere; E11.40 Type 2 diabetes mellitus with diabetic neuropathy, unspecified; E78.5 Hyperlipidemia, unspecified; Z20.822 Contact with and (suspected) exposure to COVID-19; E86.0 Dehydration; I10 Essential (primary) hypertension; E83.42 Hypomagnesemia; E87.6 Hypokalemia; R74.01 Elevation of levels of liver transaminase levels; I25.10 Atherosclerotic heart disease of native coronary artery without angina pectoris; Z87.01 Personal history of pneumonia (recurrent); Z68.27 Body mass index [BMI] 27.0-27.9, adult
CPT/HCPCS: 36415; 71045; 80048; 80053; 81001; 82150; 82948; 83036; 83605; 83690; 83735; 83880; 84100; 84436; 84439; 84443; 84479; 84484; 85025; 85610; 85730; 87040; 87070; 87081; 87086; 87205; 89220; 92526; 93005; 93970; 94010; 94640; 96361; 96365; 99285; J0360; J0696; J1815; J2001; J2060; J3480; J7030; J7060; Q0092